=== PATIENT | female | born 1975 ===

== ENCOUNTER 2017-04-28 07:24 | Outpatient (CLI) | payer OTHER ==
[~2017-04-28] VITALS: Ht 152.4 cm; Wt 104.3 kg
== END 2017-04-28 08:45 | disposition home or self-care (01) ==
LOC: OFIC 805 07:24
DX: H60.8X3 Other otitis externa, bilateral (principal); H61.23 Impacted cerumen, bilateral; J34.3 Hypertrophy of nasal turbinates; J31.0 Chronic rhinitis; J33.9 Nasal polyp, unspecified; J34.2 Deviated nasal septum

== ENCOUNTER 2017-05-12 08:43 | Outpatient (CLI) | payer OTHER ==
[~2017-05-12] VITALS: Ht 152.4 cm; Wt 104.3 kg
== END 2017-05-12 09:00 | disposition home or self-care (01) ==
LOC: OFIC 805 08:43
DX: H60.8X3 Other otitis externa, bilateral (principal); H61.23 Impacted cerumen, bilateral; J34.3 Hypertrophy of nasal turbinates; J30.89 Other allergic rhinitis; J33.8 Other polyp of sinus; J34.2 Deviated nasal septum

== ENCOUNTER 2017-10-27 11:06 | Outpatient (CLI) | payer OTHER ==
[~2017-10-27] VITALS: Ht 152.4 cm; Wt 104.3 kg
== END 2017-10-27 11:20 | disposition home or self-care (01) ==
LOC: OFIC 805 11:06
DX: J31.0 Chronic rhinitis (principal); J31.2 Chronic pharyngitis

== ENCOUNTER 2023-04-27 13:14 | Outpatient (CLI) | payer OTHER | END 2023-04-27 13:26 | disposition home or self-care (01) | LOC: MAMO-SONO 13:14 | PROVIDERS: ATTEND Obstetrics & Gynecology | DX: N60.11 Diffuse cystic mastopathy of right breast (principal); N60.12 Diffuse cystic mastopathy of left breast ==

== ENCOUNTER 2024-04-30 13:02 | Outpatient (CLI) | payer OTHER | END 2024-04-30 13:05 | disposition home or self-care (01) | LOC: MAMO-SONO 13:02 | PROVIDERS: ATTEND Obstetrics & Gynecology | DX: N60.11 Diffuse cystic mastopathy of right breast (principal); N60.12 Diffuse cystic mastopathy of left breast ==